=== PATIENT | female | born 1975 | race Caucasian/White ===

== ENCOUNTER 2021-10-26 20:13 | Emergency (ER) | payer MEDICAID ==
[~2021-10-26] VITALS: Ht 162.6 cm; Wt 113.4 kg
[~2021-10-26 20:13] MED LIST: HYDR12.55
[2021-10-26 20:41] VITALS: BP 136/91
[2021-10-26 22:15] LABS: Basophils # (auto) 0 10 ^3/uL (0-0.2); Basophils % (auto) 0.6 % (0.0-2.0); Eosinophils # (auto) 0 10 ^3/uL (0-0.8); Eosinophils % (auto) 0.2 % (0.0-7.0); Hematocrit 46.8 % (36.0-46.0); Hemoglobin 15.2 g/dL (12.2-16.2); Lymphocytes # (auto) 1.1 10 ^3/uL (0.4-5.4); Lymphocytes % (auto) 17.4 % (10.0-50.0); Mean Corpuscular Hemoglobin 28.6 pg (28.0-32.0); Mean Corpuscular Hgb Conc. 32.5 g/dL (32.0-36.0); Mean Corpuscular Volume 87.9 fL (80.0-100.0); Monocytes # (auto) 0.5 10 ^3/uL (0-1.3); Monocytes % (auto) 8.1 % (0.0-12.0); Neutrophils # (auto) 4.6 10 ^3/uL (1.6-8.6); Neutrophils % (auto) 73.7 % (37.0-80.0); Nucleated Red Blood Cells % 0.3 %; Red Blood Cells 5.32 10^6/uL (4.0-5.20); Red Cell Distribution Width 13.6 % (11.8-14.3); White Blood Cell 6.2 10^3/uL (4.4-10.8)
[2021-10-26 22:33] LABS: Albumin 3.7 g/dL (3.4-5.0); BUN/Creatinine Ratio 15.2; Calcium 9.2 mg/dL (8.5-10.1); Potassium 4.7 mmol/L (3.5-5.1)
[2021-10-26 22:44] LABS: Total Protein 7.6 g/dL (6.4-8.2)
== END 2021-10-26 22:03 | disposition left against medical advice (07) ==
LOC: ER 20:13 → EDBD 20:13 → ER 22:03
DX: R07.9 Chest pain, unspecified (principal); R06.02 Shortness of breath; R22.43 Localized swelling, mass and lump, lower limb, bilateral; Z53.21 Procedure and treatment not carried out due to patient leaving prior to being seen by health care provider
CPT/HCPCS: 36415; 71045; 80053; 83880; 84484; 85025; 93005

== ENCOUNTER 2024-09-09 05:04 | Inpatient (IN) | payer MEDICAID ==
[~2024-09-09] VITALS: Ht 157.5 cm; Wt 122.4 kg
[2024-09-09] MEDS: ACETAMINOPHEN 500 MG TAB or CAP PO ONE (05:24)
--- NOTE | 2024-09-09 05:26 | ECG ---
[facility] Test Date: 2024-09-09 Test Time: 05:21:44 Pat Name: KYARA SANDERSON Department: ED Room: Gender: F Manager Membership: SHANDA : 1975 Requested By: ISRAEL MCGEE Order Number: [id number] Reading MD: Thompson Newby Measurements Intervals [place] Rate: 110 P: 32 WV: 156 QRS: 148 QRSD: 104 T: -23 QT: 326 QTc: 442 Interpretive Statements Sinus tachycardia Right axis deviation Low voltage, precordial leads Borderline repolarization abnormality Electronically Signed On 09-12-2024 16:29:45 PST by Thompson Newby Please click the below link to view image of tracing.
--- NOTE | 2024-09-09 05:37 | ED.PDOC ---
History of Present Illness HPI Comments 49 y/o F, with a Hx of CHF, DM, HTN, and morbid obesity, presents with c/o shortness of breath and back pain, today. Patient is a poor historian and endorses on running out of oxygen in her portable O2 device that she given following her previous hospital admission for same symptoms at [facility] 3x days ago. She comments on leaving AMA, due to staff "mistreatment" and "not liking services there." Upon arrival to ED, patient notes on finishing all but 2 out her 6 antibiotic pills that she managed to obtained for unspecified infection she was found with during aforementioned hospital visit. She denies having any chest pain, palpitations, cough, congestion, chills, or other associated symptoms or modifiers at this time. Patient was found with a temperature of 101.7F, pulse rate of 116, blood pressure of 164/99, respiratory rate of 16, and a SpO2 of 81% RA. At time of assessment, patient was 92% after being placed on O2 NC. Chief Complaint: Shortness of Breath Time Seen by MD: 05:20 Primary Care Provider: UNK Reviewed Notes: Nurses Notes, Medications, Allergies Allergies: Coded Allergies: NO KNOWN ALLERGIES (Unverified , 04/21/12) Home Meds Reported Medications Hydrochlorothiazide (Hydrochlorothiazide) 12.5 Mg Tab 04/21/12 Information Source: Patient Mode of Arrival: EMS Severity: Moderate Timing: Hours Duration: Since onset Prehospital treatment: None Past Medical History PAST MEDICAL HISTORY: CHF, DM, HTN Past Medical History (Other): morbid obesity Surgical History: Denies all surgeries EMISSION TECHNICIAN History: No Pertinent EMISSION TECHNICIAN History Family History Family History: Unknown Social History Smoker: Cigarettes Alcohol: Denies ETOH Use Drugs: Denies Drug Use Lives In: Home Respiratory: reports: shortness of breath Musculoskeletal: reports: back pain All Other Systems: Reviewed and Negative (negative unless otherwise stated above or in HPI) Physical Exam General Appearance: Obese HEENT: Normal ENT Inspection, Pharynx Normal, TMs Normal Neck: Full Range of Motion, Non-Tender, Normal, Normal Inspection Respiratory: Chest Non-Tender, No Accessory Muscle Use, No Respiratory Distress, Other (coarse breath sounds bilaterally) Cardiovascular: No Edema, No JVD, No Murmur, No Gallop, Normal Peripheral Pulses, Regular Rate/Rhythm Breast Exam: Deferred Gastrointestinal: No Organomegaly, Non Tender, No Pulsatile Mass, Normal Bowel Sounds, Soft Genitalia: Deferred Pelvic: Deferred Rectal: Deferred Extremities: No calf tenderness, Normal capillary refill, Normal inspection, Normal range of motion, Non-tender, No pedal edema Musculoskeletal : Apperance: Normal Neurologic: Alert, sole stitcher hand II-XII nml as Tested, No Motor Deficits, Normal Affect, Normal Mood, No Sensory Deficits Cerebellar Function: Normal Reflexes: Normal Skin: Dry, Normal Color, Warm Lymphatic: No Adenopathy Was a procedure done? Was a procedure done?: No Differential Dx Considerations may include: CHF exacerbation, PNA, covid19, bronchitis, viral syndrome, pleural effusions, URI X-Ray, Labs, Meds, VS Vital Signs Date Time Temp Pulse Resp B/P (MAP) Pulse Ox O2 Delivery O2 Flow Rate FiO2 09/09/24 05:24 101.7 09/09/24 05:21 110 09/09/24 05:07 16 81 Room Air* 0 21 09/09/24 05:07 101.7 116 16 164/99 (120) 81 Current Medications Medications (Trade) Dose Ordered Sig/Joss Route Start Time Stop Time Status Last Admin Acetaminophen (Tylenol Tablet Or Capsule) 1,000 mg ONCE ONCE PO 09/09/24 05:30 09/09/24 05:31 DC 09/09/24 05:24 Azithromycin (Zithromax Tablet) 500 mg ONCE ONCE PO 09/09/24 05:30 09/09/24 05:31 DC 09/09/24 05:50 Vancomycin HCl 200 ml @ 200 mls/hr ONCE ONCE IV 09/09/24 05:30 09/09/24 06:29 09/09/24 05:49 Time of 1ST Reevaluation: 05:50 Reevaluation 1ST: Unchanged Patient Education/Counseling: Diagnosis, Treatment Family Education/Counseling: No Family Present Additional Information I reviewed the following notes from patient's past medical encounters: ED physician note on 10/26/2021, 08/19/2016, and 08/18/2016 The following tests were ordered, and results were reviewed by me: troponin, inocencio g screen, lactic acid, blood culture, CBC, BMP, BNP, CXR I reviewed and agreed with the following test results read by other providers: CXR I discussed treatment and results with medical personnel Departure 1 Departure Time of Disposition: 06:03 (Patient likely septic secondary to pneumonia. We will treat patient with antibiotics we will hold off on IV fluids given patient has CHF. We will admit patient for further workup.) Impression: Primary Impression: Pneumonia Qualified Codes: J18.9 - Pneumonia, unspecified organism Additional Impression: Shortness of breath Disposition: ADMITTED INPATIENT Admit to: Med Surg Condition: Serious Critical Care Note Critical Care Time?: No Stability Stability form required: No Heart Score Heart Score: Heart Score Response (Comments) Value History N/A 0 EKG N/A 0 Age N/A 0 Risk Factors N/A 0 Troponin N/A 0 Total 0 I personally scribed for ISRAEL MCGEE MD ([email or web address]) on 09/09/24 at 05:37. Electronically submitted by Steve Baird ([email or web address]). ISRAEL MCGEE MD Sep 09, 2024 05:37
[2024-09-09] MEDS: VANCOMYCIN 1GM/250ML KIT 200 ML IV ONE (05:49)
[2024-09-09] MEDS: AZITHROMYCIN 250 MG TAB PO ONE (05:50)
[2024-09-09] MEDS: CEFEPIME 2GM/50ML NS 50 ML IV ONE (06:27)
--- NOTE | 2024-09-09 06:27 | DVH ---
CHEST RADIOGRAPH Indication: sob Technique: Frontal and lateral view of the chest was obtained Comparison: None FINDINGS: Lines and Tubes: None Lungs: Pulmonary vascular congestion Pleura: No effusion. No pneumothorax. Cardiomediastinal contours: Cardiomegaly Bones: Unremarkable IMPRESSION: Pulmonary vascular congestion
[2024-09-09 06:35] VITALS: PULSE 105; RESP 20; O2SAT 94
[2024-09-09 06:37] LABS: Basophils # (auto) 0.1 10 ^3/uL (0-0.2); Chloride 100 mmol/L (98-107); Eosinophils # (auto) 0.7 10 ^3/uL (0-0.8); Eosinophils % (auto) 5.9 % (0.0-7.0); Hematocrit 44.2 % (36.0-46.0); Hemoglobin 14.7 g/dL (12.2-16.2); Lymphocytes % (auto) 8.6 % (10.0-50.0); Mean Corpuscular Hemoglobin 28.8 pg (28.0-32.0); Mean Corpuscular Hgb Conc. 33.3 g/dL (32.0-36.0); Mean Corpuscular Volume 86.6 fL (80.0-100.0); Monocytes # (auto) 0.7 10 ^3/uL (0-1.3); Neutrophils # (auto) 9.3 10 ^3/uL (1.6-8.6); Neutrophils % (auto) 78.5 % (37.0-80.0); Platelet Count (auto) 395 10^3/uL (140-450); Potassium 4.2 mmol/L (3.5-5.1); Red Cell Distribution Width 13.3 % (11.8-14.3); White Blood Cell 11.8 10^3/uL (4.4-10.8)
[2024-09-09 06:38] LABS: Anion Gap 8 (5-15); Carbon Dioxide 27 mmol/L (20-31)
[2024-09-09 06:40] LABS: Sodium 135 mmol/L (136-145)
[2024-09-09 06:43] LABS: BUN/Creatinine Ratio 13.1 (10.0-20.0); Blood Urea Nitrogen 11 mg/dL (9-23)
[2024-09-09 06:44] LABS: Glucose 181 mg/dL (74-106)
[2024-09-09] MEDS ORDERED: DOCUSATE SOD 100 MG CAP PO PRN (09:15)
[2024-09-09] MEDS ORDERED: ONDANSETRON HCL 4 MG/2 ML VIAL IV PRN (09:15)
[2024-09-09] MEDS ORDERED: DEXTROSE (50%) 50ML SYRG IV PRN (09:15)
[2024-09-09] MEDS ORDERED: ACETAMINOPHEN 325 MG TAB PO PRN (09:15)
[2024-09-09 09:51] VITALS: TEMP 97.4
[2024-09-09] MEDS: FUROSEMIDE 40 MG/4 ML VIAL IV ONE (09:53)
--- NOTE | 2024-09-09 09:55 | DVHHP2 ---
History of Present Illness Reason for Visit: Acute exacerbation of congestive heart failure History of Present Illness The patient is a 49-year-old female morbidly obese with past medical history of CHF, DM, and hypertension who presented to [facility] ED with complaint of shortness of breaths. Patient reports she has been using portable oxygen at home, however she developed increased work of breathing, shortness of breath on exertion, SOB at rest, getting worse today that prompted this visit. Patient reports she was recently seen at [facility] with same symptoms but left AMA due to Staff mistreatment and not liking service there. Patient was seen and evaluated in the ED, laboratory data shows WBC 11.8, platelets 395, sodium 135, potassium 4.2, BUN 11, creatinine 0.84, GFR 85, glucose 181, calcium 10.0, BNP 480.71, troponin 34. Chest x-ray revealing pulmonary vascular congestion. Patient was started on IV Lasix, please see medication orders section in the computer. On my assessment, patient denied chest pain, no headache, no dizziness, currently on oxygen, no nausea, no vomiting, no fever, no chills. Patient was admitted for further evaluation and medical management. Past Medical History CHF, DM, HTN, Morbid obesity Past Surgical History Denies all surgeries Family History Reviewed, noncontributory to the management of this case. Past Social History Patient lives at home, smokes cigarettes, denies alcohol or illicit drugs abuse. Review of Systems Constitutional: No: Fever, Chills, Sweats, Weakness, Malaise, Other Eyes: No: Pain, Vision change, Conjunctivae inflammation, Eyelid inflammation, Other, Redness ENT: No: Ear pain, Ear discharge, Nose pain, Nose discharge, Nose congestion, Mouth pain, Mouth swelling, Throat pain, Throat swelling, Other Respiratory: Shortness of breath, SOB with excertion, Other (SOB at rest); No: Cough, Dry, Wheezing, Hemoptysis, Pleuritic Pain, Sputum, Wheezing Cardiovascular: No: Chest Pain, Palpitations, Orthopnea, Paroxysmal Noc. Dyspnea, Edema, Lt Headedness, Other Gastrointestinal: No: Nausea, Vomiting, Abdominal Pain, Diarrhea, Constipation, Melena, Hematochezia, Other Genitourinary: No Dysuria, No Frequency, No Incontinence, No Hematuria, No Retention, No Other Musculoskeletal: No: other, neck pain, shoulder pain, arm pain, back pain, hand pain, leg pain, foot pain Skin: No: Rash, Lesions, Jaundice, Bruising, Other Neurological: No: Weakness, Numbness, Incoordination, Change in speech, Confusion, Seizures, Other Allergies: Coded Allergies: NO KNOWN ALLERGIES (Unverified , 04/21/12) Medications Current Medications Medications Dose Ordered Sig/Joss Route Start Time Stop Time Status Last Admin Dose Admin Ceftriaxone Sodium 50 ml @ 100 mls/hr DAILY@09 IV 09/09/24 14:00 Furosemide 40 mg DAILY IV 09/10/24 10:00 Diagnostic Test (Pha) 1 strip ACHS 09/09/24 11:30 Insulin Human Regular HS SC 09/09/24 22:00 Insulin Human Regular AC SC 09/09/24 11:30 Dextrose 50 ml UD PRN IV 09/09/24 09:15 Sodium Chloride 10 ml Q8HR IV 09/09/24 14:00 Acetaminophen/ Hydrocodone Bitart 1 tab Q4HP PRN PO 09/09/24 09:15 Ondansetron HCl 4 mg Q4HP PRN IV 09/09/24 09:15 Docusate Sodium 100 mg BIDPRN PRN PO 09/09/24 09:15 Acetaminophen 650 mg Q6HP PRN PO 09/09/24 09:15 Exam Vital Signs Vital Signs Date Time Temp Pulse Resp B/P (MAP) Pulse Ox O2 Delivery O2 Flow Rate FiO2 09/09/24 09:53 127/80 09/09/24 09:51 97.4 86 17 92 97.4 09/09/24 06:35 Nasal Cannula* 4 36 General Appearance: Alert, Oriented X3, Cooperative, No acute distress HEENT: Atraumatic, PERRLA, EOMI, Mucous membr. moist/pink Respiratory: Normal air movement, Other (Diminished breath sounds) Cardiovascular: Regular rate, Normal S1, Normal S2, No murmurs Abdominal: Normal bowel sounds, Soft, No tenderness, No hepatospenomegaly, No masses Extremities: No clubbing, No cyanosis, No edema, Normal pulses, No tenderness/swelling Skin: No rashes, No breakdown, No significant lesion Neuro: Normal speech, Normal tone, Sensation intact, Cranial nerves 3-12 NL, Reflexes 2+, Other (Generalized weakness) Psych/Mental Status: Mental status NL, Mood NL Labs/Xrays Labs Test 1/20/25 08:47 09/09/24 05:50 Range/Units White Blood Count 11.8 H 4.4-10.8 10^3/uL Red Blood Count 5.10 4.0-5.20 10^6/uL Hemoglobin 14.7 12.2-16.2 g/dL Hematocrit 44.2 36.0-46.0 % Mean Corpuscular Volume 86.6 80.0-100.0 fL Mean Corpuscular Hemoglobin 28.8 28.0-32.0 pg Mean Corpuscular Hemoglobin Concent 33.3 32.0-36.0 g/dL Red Cell Distribution Width 13.3 11.8-14.3 % Platelet Count 395 140-450 10^3/uL Mean Platelet Volume 8.5 6.9-10.8 fL Neutrophils (%) (Auto) 78.5 37.0-80.0 % Lymphocytes (%) (Auto) 8.6 L 10.0-50.0 % Monocytes (%) (Auto) 6.0 0.0-12.0 % Eosinophils (%) (Auto) 5.9 0.0-7.0 % Basophils (%) (Auto) 1.0 0.0-2.0 % Neutrophils # (Auto) 9.3 H 1.6-8.6 10 ^3/uL Lymphocytes # (Auto) 1.0 0.4-5.4 10 ^3/uL Monocytes # (Auto) 0.7 0-1.3 10 ^3/uL Eosinophils # (Auto) 0.7 0-0.8 10 ^3/uL Basophils # (Auto) 0.1 0-0.2 10 ^3/uL Nucleated Red Blood Cells 0.0 % Sodium Level 135 L 136-145 mmol/L Potassium Level 4.2 3.5-5.1 mmol/L Chloride Level 100 98-107 mmol/L Carbon Dioxide Level 27 20-31 mmol/L Anion Gap 8 5-15 Blood Urea Nitrogen 11 9-23 mg/dL Creatinine 0.84 0.550-1.02 mg/dL Glomerular Filtration Rate Calc 85 >90 mL/min BUN/Creatinine Ratio 13.1 10.0-20.0 Serum Glucose 181 H 74-106 mg/dL Lactic Acid Level 1.7 0.4-2.0 mmol/L Calcium Level 10.0 8.7-10.4 mg/dL B-Type Natriuretic Peptide 480.71 0-100 pg/mL PATIENT: KYARA SANDERSON ACCT: [id number] UNIT: [id number] : 1975 LOC: ER ROOM / BED: / AGE / SEX: 49 / F ADM STATUS: REG ER SERVICE 9 ORDERING PHYSICIAN: ISRAEL MCGEE MD PROCEDURE(s): CXR2 - CHEST TWO VIEWS ROUTINE REASON: sob ORDER NUMBER(s): [id number], ACCESSION NUMBER(s): [id number] CHEST RADIOGRAPH Indication: sob Technique: Frontal and lateral view of the chest was obtained Comparison: None FINDINGS: Lines and Tubes: None Lungs: Pulmonary vascular congestion Pleura: No effusion. No pneumothorax. Cardiomediastinal contours: Cardiomegaly Bones: Unremarkable IMPRESSION: Pulmonary vascular congestion Assessment/Plan Assessment/Plan Generalized weakness Acute exacerbation of congestive heart failure Leukocytosis, unspecified Diabetes mellitus with hyperglycemia Plan 1. Admit to telemetry unit 2. Breathing treatment 3. Pain control management 4. IV antibiotic management 5. Management of fluids and electrolytes 6. Consultation for hospitalist 7. Diagnostic test chest x-ray 8. DVT prophylaxis-on SCDs 9. Repeat labs CBC, CMP in a.m. 10. Home medication reviewed and reconciled 11. Continue with current medical management 12. Treatment plan discussed with patient and RN. Patient verbalized understanding. Plan discussed with: Patient, Other (RN) My Orders Orders - JESSICA MCNAMARA DNP Procedure Category Date Status Time Furosemide Injection PHA 09/10/24 In Process (Lasix Injection) 10:00 Consistent DIET 09/09/24 Transmitted Carb(Ccho)Diabetes Breakfast Glucose Blood PHA 09/09/24 In Process (Accu-Chek Comfort 11:30 Insulin R (Human) PHA 09/09/24 In Process (Insulin R) 22:00 Insulin R (Human) PHA 09/09/24 In Process (Insulin R) 11:30 Dextrose 50% Syringe PHA 09/09/24 In Process 09:15 Allergies SCOTTIE 09/09/24 In Process 09:13 Code Status CODE 09/09/24 Transmitted 09:13 Sodium Chloride Lock PHA 09/09/24 In Process (Saline Lock Ns) 14:00 Oxygen Per Hour RT 09/09/24 Transmitted 09:13 Hydrocodone-Acet PHA 09/09/24 In Process 5/325mg Tab ([place] 09:15 Ondansetron Hcl PHA 09/09/24 In Process (Zofran) 09:15 Docusate Sodium PHA 09/09/24 In Process Capsule (Colace 09:15 Complete Blood Count LAB 09/10/24 Verified 04:00 Comprehensive LAB 09/10/24 Verified Metabolic Panel 04:00 Condition: Serious SCOTTIE 09/09/24 In Process 09:13 Acetaminophen Tablet PHA 09/09/24 In Process (Tylenol Tablet) 09:15 Bedrest With Bathroom SCOTTIE 09/09/24 In Process Privileg 09:13 Sequential SCOTTIE 09/09/24 In Process Compression Device Ceftriaxone 1gm/50ml PHA 09/09/24 In Process D5w (Rocephin) 14:00 Problem List: (1) Generalized weakness (2) Acute exacerbation of congestive heart failure (3) Leukocytosis, unspecified (4) Diabetes mellitus with hyperglycemia Date of Service: Sep 09, 2024 Billing Provider: JESSICA MCNAMARA DNP Common Visit Codes: [id number] INP/OBS CARE (HIGH) JESSICA MCNAMARA DNP Sep 09, 2024 09:55
[2024-09-09] MEDS ORDERED: MORPHINE SULFATE INJ 2 MG/ml SYRG IV PRN (10:00)
[2024-09-09] MEDS ORDERED: NITROGLYCERIN 0.4 MG SL TAB SL PRN (10:00)
[2024-09-09] MEDS: ACCU-CHEK COMFORT CURVE STRIP VI SCH (11:41)
[2024-09-09] MEDS: InsuLIN REG 1unit/0.01ml Soln (100units/ml) SC SCH (11:46)
[2024-09-09] MEDS: InsuLIN REG 1unit/0.01ml Soln (100units/ml) ONE (11:48)
[2024-09-09] MEDS: SODIUM CHLOR 0.9% PF (SALINE LOCK) 10ML VIAL/SYR IV SCH (14:03)
[2024-09-09] MEDS: cefTRIAXone 1GM/50ML D5W 50 ML IV SCH (14:40)
[2024-09-09] MEDS: HYDROcodone-ACET 5/325MG TAB PO PRN (14:46)
[2024-09-09 15:00] VITALS: BP 128/89; PULSE 91; RESP 14; O2SAT 94
[2024-09-09] MEDS ORDERED: InsuLIN REG 1unit/0.01ml Soln (100units/ml) SC SCH (22:00)
[2024-09-10] MEDS ORDERED: FUROSEMIDE 40 MG/4 ML VIAL IV SCH (10:00)
== END 2024-09-09 15:53 | disposition left against medical advice (07) | DRG 133 ==
LOC: ER 05:04 → TELE 09:54 → ER 09:55 → TELE 15:53
PROVIDERS: ADMIT Nurse Practitioner Family; ATTEND Nurse Practitioner Family
DX: J96.21 Acute and chronic respiratory failure with hypoxia (principal); I50.33 Acute on chronic diastolic (congestive) heart failure; J15.69 Pneumonia due to other Gram-negative bacteria; I11.0 Hypertensive heart disease with heart failure; J15.9 Unspecified bacterial pneumonia; D72.829 Elevated white blood cell count, unspecified; E11.65 Type 2 diabetes mellitus with hyperglycemia; E66.01 Morbid (severe) obesity due to excess calories; F17.210 Nicotine dependence, cigarettes, uncomplicated; Z53.29 Procedure and treatment not carried out because of patient's decision for other reasons; Z68.42 Body mass index [BMI] 45.0-49.9, adult
CPT/HCPCS: 36415; 71046; 80048; 82962; 83605; 83880; 84484; 85025; 87040; 93005; 96365; 96366; 96368; 96372; 96375; G0378; J0692; J1815